=== PATIENT | male | born 2000 ===

== ENCOUNTER 2025-06-14 15:31 | Emergency (ER) | payer SELFPAY ==
[2025-06-14] MEDS ORDERED: Bacitracin 1 PK ONE (17:07)
== END 2025-06-14 17:05 | disposition home or self-care (01) ==
LOC: ERS 15:31
DX: T22.222A Burn of second degree of left elbow, initial encounter (principal); Z23 Encounter for immunization; X08.8XXA Exposure to other specified smoke, fire and flames, initial encounter
CPT/HCPCS: 90471; 90715